=== PATIENT | male | born 1975 | race Two or more races ===

== ENCOUNTER → 2020-06-28 | Outpatient (CLI) | payer OTHER ==
--- NOTE | 2020-06-28 16:12 | RAD ---
INDICATION: Reason: KNEE AND BACK PAIN / Spl. Instructions: / History: COMPARISON: None. IMPRESSION: Right knee: 3 views obtained. Mild degenerative changes with medial joint space narrowing. No acute f racture or dislocation. Left knee: Single view obtained. Mild degenerative changes with mild joint space narrowing of the med ial compartment. No acute fracture within the limits of single view imaging. Electronically signed by: Richie Mittal MD (06/28/2020 4:10 PM) [id number]
--- NOTE | 2020-06-30 08:03 | RAD ---
INDICATION: Reason: KNEE AND BACK PAIN / Spl. Instructions: / History: COMPARISON: None. IMPRESSION: Lumbar spine: 5 views obtained. At the partially visualized abdomen there is some scattered air-fille d mildly prominent loops of bowel seen in a nonspecific pattern. There is some degenerative changes o f the spine with facet hypertrophy as well as osteophyte formation at the vertebral body endplates wh ich can be seen with degenerative disc disease. Mild wedge deformity of L2 and L1 vertebral bodies. M ild retrolisthesis of L3 on 4 and L2 on 3. Electronically signed by: Richie Mittal MD (06/30/2020 8:01 AM) [id number]
== END ==
LOC: RAD 11:10
PROVIDERS: ATTEND Physician Assistant
DX: M17.0 Bilateral primary osteoarthritis of knee (principal); M25.78 Osteophyte, vertebrae; M47.816 Spondylosis without myelopathy or radiculopathy, lumbar region
CPT/HCPCS: 72110; 73560; 73565